=== PATIENT | male | born 1995 | race Caucasian/White ===

== ENCOUNTER → 2024-06-14 | Outpatient (CLI) | payer BC ==
--- NOTE | 2024-06-14 13:13 | XR ---
EXAMINATION TYPE: XR tibia fibula RT DATE OF EXAM: 06/14/2024 12:30 PM COMPARISON: None CLINICAL INDICATION: Male, 28 years old with history of S80.11XD CONTUSION RIGHT KNEE; [facility] TECHNIQUE: XR tibia fibula RT; examined in AP and lateral projections. FINDINGS: No evidence of any acute osseous pathology, joint dislocation, or soft tissue swelling is n oted. IMPRESSION: No evidence of acute fracture. [facility], , 06/14/2024 1:11 PM
== END | disposition home or self-care (01) ==
LOC: RADXRMAIN 12:07
PROVIDERS: ATTEND Emergency Medicine
DX: S80.11XD Contusion of right lower leg, subsequent encounter (principal); S81.811D Laceration without foreign body, right lower leg, subsequent encounter